=== PATIENT | female | born 1950 | race Caucasian/White ===

== ENCOUNTER 2017-02-15 21:52 | Observation (INO) | payer OTHER, MEDICAID ==
[~2017-02-15] VITALS: Ht 157.5 cm; Wt 101.2 kg
[~2017-02-15 21:52] MED LIST: ALLO100T PO; ASPI81CH43 PO; CLOP75TA28 PO; DOCU-94 PO; FLUT50SP13 INH; FURO40TA4 PO; GABA-498 PO; GLIP1TAB38 PO; IPRAAER5 IN; LOR05T PO; LOSA50TA26 PO; MET50T PO; MYC15TP TOP; NITR0.4S29 SL; PANT1INJ3 PO; SERT-138 PO; SIMV-13 PO; TRAM-297 PO; TRAZADONE PO
[2017-02-15] MEDS ORDERED: SODIUM CHLORIDE 0.9% 1,000 ML IV ONE (23:19)
[2017-02-15 23:24] LABS: Basophils # (auto) 0 uL; Basophils % (auto) 0.1 % (0.0-2.0); DEFINITIVE VIEW TRANSMISSION; Eosinophils # (auto) 0.1 uL; Hematocrit 35.5 % (36.0-46.0); Hemoglobin 11.1 g/dL (12.2-16.2); Lymphocytes % (auto) 17.1 % (10.0-50.0); Mean Corpuscular Hemoglobin 20.7 pg (28.0-32.0); Mean Corpuscular Hgb Conc. 31.3 g/dL (32.0-36.0); Mean Corpuscular Volume 66.3 fL (80.0-100.0); Mean Platelet Volume 7.3 fL (7.4-10.4); Monocytes # (auto) 0.2 uL; Monocytes % (auto) 1.5 % (0.0-12.0); Neutrophils # (auto) 9.2 uL; Neutrophils % (auto) 80.3 % (37.0-80.0); Platelet Count (auto) 232 10^3/uL (140-450); White Blood Cell 11.5 10^3/uL (4.4-10.8)
[2017-02-15 23:26] LABS: Red Cell Distribution Width 21.1 % (11.6-16.0)
[2017-02-15] MEDS ORDERED: PIPERACILLIN-TAZOB 3.375GM 100 ML IV ONE (23:30)
[2017-02-15 23:41] LABS: INR 0.93 (0.9-1.15); Partial Thromboplastin Time 25.9 sec (22.64-33.71)
[2017-02-15 23:53] LABS: Albumin 3.4 g/dL (3.4-5.0); BUN/Creatinine Ratio 21.7; Calcium 9.5 mg/dL (8.5-10.1); Potassium 4.2 mmol/L (3.5-5.1)
[2017-02-15 23:55] LABS: Bilirubin, Total 0.4 mg/dL (0.2-1.0); Total Protein 7.4 g/dL (6.4-8.2)
[2017-02-16 00:22] LABS: Anisocytosis Slight; Hypochromia Moderate; Microcytosis Marked; Ovalocytes FEW; Platelet Estimate Adequate
[2017-02-16 00:45] LABS: Lactic Acid w/Reflex 2.1 mmol/L (0.4-2.0)
[2017-02-16 00:47] LABS: REFLEX LACTIC ACID YES OR NO YES
[2017-02-16 03:36] VITALS: BP 141/75
== END 2017-02-16 03:49 | disposition short-term general hospital (02) | DRG 603 ==
LOC: EDBD 21:52 → ER 22:09 → OVERFLOW 02-16 01:30 → ER 02-16 03:49
PROVIDERS: ADMIT Emergency Medicine; ATTEND Emergency Medicine
DX: L03.115 Cellulitis of right lower limb (principal); Z87.442 Personal history of urinary calculi; J44.9 Chronic obstructive pulmonary disease, unspecified; E11.9 Type 2 diabetes mellitus without complications; F32.9 Major depressive disorder, single episode, unspecified; F41.9 Anxiety disorder, unspecified; Z95.1 Presence of aortocoronary bypass graft; Z87.891 Personal history of nicotine dependence; Z79.899 Other long term (current) drug therapy; Z79.82 Long term (current) use of aspirin; I10 Essential (primary) hypertension
CPT/HCPCS: 36415; 71010; 80053; 82962; 83605; 84484; 85025; 85610; 85730; 87040; 93005; 96365; 96366; 99285; G0378; J2543; J7030

== ENCOUNTER 2017-04-18 12:43 | Emergency (ER) | payer OTHER, MEDICAID ==
[~2017-04-18] VITALS: Ht 162.6 cm; Wt 90.7 kg
[2017-04-18] MEDS ORDERED: FUROSEMIDE 40 MG/4 ML VIAL IV ONE (13:15)
[2017-04-18 13:26] LABS: Basophils # (auto) 0 uL; CONDITION AutoValidated; DEFINITIVE SEE PRINTOUT; Eosinophils # (auto) 0 uL; Eosinophils % (auto) 0.3 % (0.0-7.0); Hematocrit 32.9 % (36.0-46.0); Hemoglobin 10.5 g/dL (12.2-16.2); Lymphocytes % (auto) 18.7 % (10.0-50.0); Mean Corpuscular Hemoglobin 20.3 pg (28.0-32.0); Mean Corpuscular Hgb Conc. 31.9 g/dL (32.0-36.0); Mean Corpuscular Volume 63.6 fL (80.0-100.0); Mean Platelet Volume 7.6 fL (7.4-10.4); Monocytes # (auto) 0.2 uL; Monocytes % (auto) 1.5 % (0.0-12.0); Neutrophils # (auto) 8.6 uL; Neutrophils % (auto) 79.5 % (37.0-80.0); Platelet Count (auto) 217 10^3/uL (140-450); White Blood Cell 10.9 10^3/uL (4.4-10.8)
[2017-04-18 13:29] LABS: Red Cell Distribution Width 20.2 % (11.6-16.0)
[2017-04-18 13:41] LABS: Anisocytosis Slight; Hypochromia Slight; Microcytosis Slight; Platelet Estimate Adequate
[2017-04-18 13:47] LABS: BUN/Creatinine Ratio 19.1; Bilirubin, Total 0.7 mg/dL (0.2-1.0); Calcium 8.6 mg/dL (8.5-10.1); Potassium 3.9 mmol/L (3.5-5.1); Total Protein 6.8 g/dL (6.4-8.2)
[2017-04-18] MEDS ORDERED: IOHEXOL 350 MG/ML 100ML IJ ONE (14:05)
[2017-04-18 14:34] LABS: B-Type Natriuretic Peptide 67.33 pg/mL (0-100)
[2017-04-18 14:44] LABS: Temperature: 23.5 C (20.0-25.0)
[2017-04-18] MEDS ORDERED: cefTRIAXone 1GM/50ML D5W 50 ML IV ONE (16:45)
[2017-04-18] MEDS ORDERED: ALBUTEROL SULF 2.5 MG/0.5ML(0.5%) NEB SOLN NEB ONE (16:45)
[2017-04-18] MEDS ORDERED: IPRATROPIUM BROM 0.5 MG/2.5ML INH SOL NEB ONE (16:45)
[2017-04-18] MEDS ORDERED: methylPREDNISolone SOD SUCC 125 MG/2 ML VL IV ONE (16:45)
[2017-04-18 16:54] LABS: Urine RBC None Seen /hpf (0 - 4)
[2017-04-18 17:17] LABS: Urine Bilirubin Negative (Negative); Urine Blood TRACE /uL (Negative); Urine Color Yellow (Yellow); Urine Glucose Normal (Normal); Urine Ketone Negative (Negative); Urine Nitrite Negative (Negative); Urine Squamous Epithelial Cell FEW /hpf (<5); Urine Urobilinogen Normal (Negative); Urine pH 6.5 (5.0-8.0)
[2017-04-18 18:32] VITALS: BP 124/82
== END 2017-04-18 18:46 | disposition short-term general hospital (02) ==
LOC: EDBD 12:43 → ER 12:45
DX: J44.1 Chronic obstructive pulmonary disease with (acute) exacerbation (principal); E11.65 Type 2 diabetes mellitus with hyperglycemia; Z79.4 Long term (current) use of insulin; I11.0 Hypertensive heart disease with heart failure; I50.9 Heart failure, unspecified; E78.5 Hyperlipidemia, unspecified; I25.2 Old myocardial infarction; Z87.891 Personal history of nicotine dependence; Z95.1 Presence of aortocoronary bypass graft
CPT/HCPCS: 36415; 71010; 71275; 80053; 81001; 83880; 84484; 85025; 93005; 94640; 96365; 96375; 99285; J0696; J2930; Q9967

== ENCOUNTER 2017-05-24 12:15 | Observation (INO) | payer OTHER, MEDICAID ==
[~2017-05-24] VITALS: Ht 157.5 cm; Wt 99.8 kg
[2017-05-24] MEDS ORDERED: methylPREDNISolone SOD SUCC 125 MG/2 ML VL IV ONE (13:45)
[2017-05-24] MEDS ORDERED: IPRATROPIUM BROM 0.5 MG/2.5ML INH SOL HHN ONE (13:45)
[2017-05-24] MEDS ORDERED: ALBUTEROL SULF 2.5 MG/0.5ML(0.5%) NEB SOLN HHN ONE (13:45)
[2017-05-24 13:50] LABS: Basophils # (auto) 0 uL; Basophils % (auto) 0.3 % (0.0-2.0); CONDITION Y; DEFINITIVE SEE PRINTOUT; Eosinophils # (auto) 0.1 uL; Eosinophils % (auto) 0.6 % (0.0-7.0); Hematocrit 34.4 % (36.0-46.0); Hemoglobin 10.9 g/dL (12.2-16.2); Lymphocytes # (auto) 1.4 uL; Lymphocytes % (auto) 14.2 % (10.0-50.0); Mean Corpuscular Hemoglobin 20.7 pg (28.0-32.0); Mean Corpuscular Hgb Conc. 31.7 g/dL (32.0-36.0); Mean Corpuscular Volume 65.3 fL (80.0-100.0); Mean Platelet Volume 7.6 fL (7.4-10.4); Monocytes # (auto) 0.4 uL; Monocytes % (auto) 3.8 % (0.0-12.0); Neutrophils # (auto) 8.2 uL; Neutrophils % (auto) 81.1 % (37.0-80.0); Platelet Count (auto) 224 10^3/uL (140-450); White Blood Cell 10.1 10^3/uL (4.4-10.8)
[2017-05-24 13:52] LABS: Red Cell Distribution Width 23.3 % (11.6-16.0)
[2017-05-24 14:04] LABS: B-Type Natriuretic Peptide 76.58 pg/mL (0-100)
[2017-05-24 14:05] LABS: Temperature: 22.9 C (20.0-25.0)
[2017-05-24 14:10] LABS: Albumin 3.1 g/dL (3.4-5.0); Alkaline Phosphatase 87 U/L (45-117); Anion Gap 7 (5-15); Aspartate Aminotransferase 12 U/L (15-37); BUN/Creatinine Ratio 14.5; Bilirubin, Total 0.4 mg/dL (0.2-1.0); Blood Urea Nitrogen 10 mg/dL (7-18); Calcium 8.5 mg/dL (8.5-10.1); Carbon Dioxide 33 mmol/L (21-32); Chloride 94 mmol/L (98-107); GFR African American 109 mL/min; GFR Non-African American 90 mL/min; Potassium 4.2 mmol/L (3.5-5.1); Sodium 134 mmol/L (136-145); Total Protein 6.7 g/dL (6.4-8.2)
[2017-05-24 14:13] LABS: Glucose 442 mg/dL (74-106)
[2017-05-24 14:32] LABS: Anisocytosis Moderate; Hypochromia Moderate; Microcytosis Moderate; Ovalocytes FEW; Platelet Estimate Adequate
[2017-05-24 14:40] LABS: Lactic Acid w/Reflex 3.2 mmol/L (0.4-2.0)
[2017-05-24 14:44] LABS: REFLEX LACTIC ACID YES OR NO YES
[2017-05-24] MEDS ORDERED: cefTRIAXone 1GM/50ML D5W 50 ML IV ONE (15:30)
[2017-05-24] MEDS ORDERED: InsuLIN REG 1unit/0.01ml Soln (100units/ml) IV ONE (15:30)
[2017-05-24] MEDS ORDERED: SODIUM CHLORIDE 0.9% 1,000 ML IV ONE (15:45)
[2017-05-24] MEDS ORDERED: AZITHROMYCIN 500MG/D5W 250ML 250 ML IV ONE (16:00)
[2017-05-24] MEDS ORDERED: ALBUTEROL SULF 2.5 MG/0.5ML(0.5%) NEB SOLN NEB ONE (18:15)
[2017-05-24] MEDS ORDERED: IPRATROPIUM BROM 0.5 MG/2.5ML INH SOL NEB ONE (18:15)
[2017-05-24 18:53] VITALS: BP 129/55
== END 2017-05-24 19:01 | disposition short-term general hospital (02) | DRG 190 ==
LOC: ER 12:15 → EDBD 12:15 → OVERFLOW 13:35 → ER 19:01
PROVIDERS: ADMIT Family Medicine; ATTEND Family Medicine
DX: J44.1 Chronic obstructive pulmonary disease with (acute) exacerbation (principal); J18.1 Lobar pneumonia, unspecified organism; A41.9 Sepsis, unspecified organism; D50.9 Iron deficiency anemia, unspecified; E11.65 Type 2 diabetes mellitus with hyperglycemia; F41.9 Anxiety disorder, unspecified; I25.10 Atherosclerotic heart disease of native coronary artery without angina pectoris; I11.0 Hypertensive heart disease with heart failure; E78.5 Hyperlipidemia, unspecified; I50.9 Heart failure, unspecified; F32.9 Major depressive disorder, single episode, unspecified; I25.2 Old myocardial infarction; Z87.891 Personal history of nicotine dependence; Z98.61 Coronary angioplasty status; Z95.1 Presence of aortocoronary bypass graft; Z82.49 Family history of ischemic heart disease and other diseases of the circulatory system
CPT/HCPCS: 36415; 71010; 80053; 80320; 82962; 83605; 83735; 83880; 84484; 85025; 87040; 93005; 94640; 96365; 96366; 96367; 96368; 96375; 99285; G0378; J0456; J0696; J1815; J2930

== ENCOUNTER 2017-07-13 23:45 | Emergency (ER) | payer MEDICAID, OTHER ==
[~2017-07-13] VITALS: Ht 162.6 cm; Wt 102.1 kg
[2017-07-14 00:17] LABS: Basophils # (auto) 0 uL; Basophils % (auto) 0.3 % (0.0-2.0); Eosinophils # (auto) 0.1 uL; Eosinophils % (auto) 1.3 % (0.0-7.0); Hematocrit 33.8 % (36.0-46.0); Hemoglobin 10.5 g/dL (12.2-16.2); Lymphocytes # (auto) 2.4 uL; Lymphocytes % (auto) 23.6 % (10.0-50.0); Mean Corpuscular Hgb Conc. 31.1 g/dL (32.0-36.0); Mean Corpuscular Volume 64.3 fL (80.0-100.0); Monocytes # (auto) 0.5 uL; Monocytes % (auto) 4.8 % (0.0-12.0); Neutrophils # (auto) 7.2 uL; Platelet Count (auto) 146 10^3/uL (140-450); White Blood Cell 10.3 10^3/uL (4.4-10.8)
[2017-07-14 00:24] LABS: Red Cell Distribution Width 22.7 % (11.6-16.0)
[2017-07-14 00:30] LABS: Albumin 2.9 g/dL (3.4-5.0); Anion Gap 6 (5-15); Aspartate Aminotransferase 23 U/L (15-37); BUN/Creatinine Ratio 21.1; Blood Urea Nitrogen 16 mg/dL (7-18); Calcium 8.5 mg/dL (8.5-10.1); Carbon Dioxide 35 mmol/L (21-32); Chloride 98 mmol/L (98-107); GFR African American 97 mL/min; GFR Non-African American 80 mL/min; Glucose 273 mg/dL (74-106); INR 0.95 (0.9-1.15); Partial Thromboplastin Time 26.8 sec (22.64-33.71); Prothrombin Time 10.4 sec (9.37-12.3); Sodium 139 mmol/L (136-145)
[2017-07-14] MEDS ORDERED: methylPREDNISolone SOD SUCC 125 MG/2 ML VL IV ONE (00:30)
[2017-07-14 00:35] LABS: Alkaline Phosphatase 94 U/L (45-117); Bilirubin, Total 0.6 mg/dL (0.2-1.0); Total Protein 6.4 g/dL (6.4-8.2)
[2017-07-14 00:47] LABS: Temperature: 22.7 C (20.0-25.0)
[2017-07-14 01:15] LABS: Anisocytosis Moderate; Microcytosis Marked; Platelet Estimate Adequate
[2017-07-14 01:16] LABS: Hypochromia Marked
[2017-07-14 01:17] LABS: Basophilic Stippling FEW; Ovalocytes FEW; Polychromasia Slight; Tear Drop Cells FEW
[2017-07-14 01:18] LABS: Hypersegmented Neutrophils Present
[2017-07-14 02:58] LABS: Urine Bilirubin Negative (Negative); Urine Blood Negative /uL (Negative); Urine Ca Oxalate Crystal FEW (None Seen); Urine Color Yellow (Yellow); Urine Glucose Normal (Normal); Urine Ketone Negative (Negative); Urine Mucus FEW (None Seen); Urine Nitrite POSITIVE (Negative); Urine RBC 6 /hpf (0 - 4); Urine Squamous Epithelial Cell MOD /hpf (<5); Urine Urobilinogen Normal (Negative); Urine WBC Clumps PRESENT /hpf (None Seen); Urine pH 5.5 (5.0-8.0)
[2017-07-14] MEDS ORDERED: cefTRIAXone 1GM/50ML D5W 50 ML IV ONE (03:15)
[2017-07-14 03:22] LABS: Allen Test Yes; Base Excess 8.9 mmol/L (-2.0-2.0); Blood 02Sat 98.3 % (96-100); Blood COHb 1.1 % (0.5-1.5); Blood MetHb 0.2 % (0.0-1.5); HCO3 36.5 mmol/L (22-26.0); HHb 1.7 % (0.0-5.0); MODE MASK - NRB; PO2 172.7 mmHg (80.0-100.0); PO2(T) 172.7 mmHg (80.0-100.0); Sample Type Arterial; pH 7.354 (7.350-7.450)
[2017-07-14] MEDS ORDERED: FUROSEMIDE 20 MG/2 ML VIAL IV ONE (03:45)
[2017-07-14 07:52] VITALS: BP 121/75
[2017-07-14] MEDS ORDERED: InsuLIN REG 1unit/0.01ml Soln (100units/ml) IV ONE (08:00)
== END 2017-07-14 04:00 | disposition home or self-care (01) ==
LOC: EDBD 23:45 → ER 23:54
DX: J44.9 Chronic obstructive pulmonary disease, unspecified (principal); N39.0 Urinary tract infection, site not specified; E11.9 Type 2 diabetes mellitus without complications; L03.115 Cellulitis of right lower limb; I11.0 Hypertensive heart disease with heart failure; I50.9 Heart failure, unspecified; I25.2 Old myocardial infarction; Z95.1 Presence of aortocoronary bypass graft; Z98.61 Coronary angioplasty status
CPT/HCPCS: 36415; 36600; 71010; 80053; 81001; 82805; 82962; 83735; 83880; 84484; 85025; 85610; 85730; 93005; 96361; 96372; 96374; 99285; J0696; J1815; J1940; J2930

== ENCOUNTER 2017-08-29 11:31 | Emergency (ER) | payer OTHER, MEDICAID ==
[~2017-08-29] VITALS: Ht 165.1 cm; Wt 77.1 kg
[~2017-08-29 11:31] MED LIST changes: -LOR05T PO; +LORA-654 PO
[2017-08-29] MEDS ORDERED: PIPERACILLIN-TAZOB 3.375GM 100 ML IV ONE (12:45)
[2017-08-29] MEDS ORDERED: IPRATROPIUM BROM 0.5 MG/2.5ML INH SOL NEB ONE (12:45)
[2017-08-29] MEDS ORDERED: ALBUTEROL SULF 2.5 MG/0.5ML(0.5%) NEB SOLN NEB ONE (12:45)
[2017-08-29] MEDS ORDERED: methylPREDNISolone SOD SUCC 125 MG/2 ML VL IV ONE (12:45)
[2017-08-29 13:07] LABS: Basophils # (auto) 0 uL; Eosinophils # (auto) 0 uL; Eosinophils % (auto) 0.4 % (0.0-7.0); Hemoglobin 9.5 g/dL (12.2-16.2); Platelet Count (auto) 148 10^3/uL (140-450); White Blood Cell 9.1 10^3/uL (4.4-10.8)
[2017-08-29 13:09] LABS: Basophils % (auto) 0.2 % (0.0-2.0); Hematocrit 29.8 % (36.0-46.0); Lymphocytes % (auto) 10.8 % (10.0-50.0); Mean Corpuscular Hemoglobin 20.4 pg (28.0-32.0); Mean Corpuscular Hgb Conc. 31.9 g/dL (32.0-36.0); Monocytes # (auto) 0.4 uL; Monocytes % (auto) 4.6 % (0.0-12.0); Neutrophils # (auto) 7.6 uL; Nucleated Red Blood Cells % 0.1 %; Red Blood Cells 4.65 10^6/uL (4.0-5.20)
[2017-08-29 13:19] LABS: Red Cell Distribution Width 21.9 % (11.8-14.3)
[2017-08-29 13:53] LABS: Alanine Aminotransferase 17 U/L (13-56); Albumin 3.1 g/dL (3.4-5.0); Alkaline Phosphatase 75 U/L (45-117); Anion Gap 6 (5-15); Aspartate Aminotransferase 13 U/L (15-37); BUN/Creatinine Ratio 20.3; Bilirubin, Total 0.8 mg/dL (0.2-1.0); Blood Urea Nitrogen 14 mg/dL (7-18); Calcium 8.7 mg/dL (8.5-10.1); Carbon Dioxide 37 mmol/L (21-32); Chloride 95 mmol/L (98-107); GFR African American 108 mL/min; GFR Non-African American 90 mL/min; Glucose 313 mg/dL (74-106); Magnesium 1.6 mg/dL (1.6-2.6); Potassium 3.5 mmol/L (3.5-5.1); Sodium 138 mmol/L (136-145); Total Protein 6.6 g/dL (6.4-8.2)
[2017-08-29 15:32] VITALS: BP 107/62
== END 2017-08-29 15:56 ==
LOC: EDBD 11:31 → ER 11:31
DX: J44.1 Chronic obstructive pulmonary disease with (acute) exacerbation (principal); L03.119 Cellulitis of unspecified part of limb; I25.810 Atherosclerosis of coronary artery bypass graft(s) without angina pectoris; I50.9 Heart failure, unspecified; I11.0 Hypertensive heart disease with heart failure; I25.2 Old myocardial infarction; E11.9 Type 2 diabetes mellitus without complications; Z95.1 Presence of aortocoronary bypass graft; Z87.891 Personal history of nicotine dependence
CPT/HCPCS: 36415; 71010; 80053; 83735; 84484; 85025; 93005; 94640; 94761; 96365; 96375; 99285; J2543; J2930